=== PATIENT | female | born 1995 | race Two or more races ===

== ENCOUNTER → 2022-10-26 | Outpatient (REF) | payer OTHER | LOC: M SFHCWAGY 17:03 | PROVIDERS: ATTEND Obstetrics & Gynecology | DX: O34.211 Maternal care for low transverse scar from previous cesarean delivery (principal) ==

== ENCOUNTER 2023-06-11 16:11 | Emergency (ER) | payer OTHER ==
[~2023-06-11] VITALS: Ht 162.6 cm; Wt 77.3 kg
[~2023-06-11 16:11] MED LIST: COLA100C5 PO; IBUP80TA PO; PERCOCET PO; PRENTAB9 PO
[2023-06-11] MEDS ORDERED: ASPI-226 (16:24)
[2023-06-11 19:03] VITALS: BP 126/69; TEMP 97.4; O2SAT 98
== END 2023-06-11 19:17 | disposition home or self-care (01) ==
LOC: M ED 16:11
DX: M79.605 Pain in left leg (principal); Z88.2 Allergy status to sulfonamides; Z79.82 Long term (current) use of aspirin

== ENCOUNTER → 2023-12-25 | Outpatient (CLI) | payer OTHER ==
[~2023-12-25] MED LIST changes: +ASPI-226
[2023-12-25 18:30] LABS: HEMOGLOBIN 12.9 g/dl (12.0-15.5); MEAN CORPUSCULAR HGB CONC 32.3 g/dl (32.0-36.5); MEAN CORPUSCULAR VOLUME 86.8 fl (80.0-96.0); PLATELET COUNT, AUTOMATED 288 10^3/uL (150-450); RED BLOOD COUNT 4.61 10^6/uL (4.00-5.40); WHITE BLOOD COUNT 6.3 10^3/uL (4.0-10.0)
== END ==
LOC: M PLALAB 15:28
PROVIDERS: ATTEND Advanced Practice Midwife
DX: Z12.4 Encounter for screening for malignant neoplasm of cervix (principal); N92.0 Excessive and frequent menstruation with regular cycle; Z77.9 Other contact with and (suspected) exposures hazardous to health
CPT/HCPCS: 36415; 84443; 85027; G0123

== ENCOUNTER → 2024-02-06 | Outpatient (CLI) | payer OTHER | LOC: M WHC 10:06 | PROVIDERS: ATTEND Advanced Practice Midwife | DX: N92.0 Excessive and frequent menstruation with regular cycle (principal); N83.292 Other ovarian cyst, left side ==

== ENCOUNTER → 2024-07-16 | Outpatient (REF) | payer OTHER | LOC: M PLALAB 10:29 | PROVIDERS: ATTEND Advanced Practice Midwife | DX: Z34.81 Encounter for supervision of other normal pregnancy, first trimester (principal) ==

== ENCOUNTER → 2024-07-18 | Outpatient (CLI) | payer OTHER ==
[2024-07-18 13:02] LABS: GLUCOSE CHALLENGE TEST 1 HOUR 172 MG/DL (LESS THAN 140)
[2024-07-18 13:06] LABS: HEMATOCRIT 37.6 % (36.0-47.0); HEMOGLOBIN 12.2 g/dl (12.0-15.5); MEAN CORPUSCULAR HEMOGLOBIN 28.2 pg (27.0-33.0); MEAN CORPUSCULAR HGB CONC 32.4 g/dl (32.0-36.5); MEAN CORPUSCULAR VOLUME 86.8 fl (80.0-96.0); PLATELET COUNT, AUTOMATED 252 10^3/uL (150-450); RED BLOOD COUNT 4.33 10^6/uL (4.00-5.40); WHITE BLOOD COUNT 9.2 10^3/uL (4.0-10.0)
[2024-07-18 13:34] LABS: HIV 1&2 SCREEN NEGATIVE (NEGATIVE)
[2024-07-18 13:42] LABS: HEPATITIS C VIRUS ABY INDEX 0.04 INDEX (<0.8)
[2024-07-18 15:06] LABS: Trichomonas vaginalis (AMP) NOT DETECTED (NEGATIVE)
[2024-07-21 14:40] LABS: GC DNA AMPLIFICATION NEGATIVE (NEGATIVE)
== END ==
LOC: M PLALAB 09:56
PROVIDERS: ATTEND Advanced Practice Midwife
DX: Z34.81 Encounter for supervision of other normal pregnancy, first trimester (principal)

== ENCOUNTER → 2024-07-28 | Outpatient (CLI) | payer OTHER | LOC: M LAB 07:17 | PROVIDERS: ATTEND Advanced Practice Midwife | DX: O99.810 Abnormal glucose complicating pregnancy (principal) ==

== ENCOUNTER → 2024-09-11 | Outpatient (CLI) | payer OTHER | LOC: M WHC 10:52 | PROVIDERS: ATTEND Advanced Practice Midwife | DX: O24.319 Unspecified pre-existing diabetes mellitus in pregnancy, unspecified trimester (principal) ==

== ENCOUNTER → 2024-11-12 | Outpatient (CLI) | payer OTHER ==
[2024-11-12 17:09] LABS: PLATELET COUNT, AUTOMATED 220 10^3/uL (150-450)
[2024-11-12 18:10] LABS: HIV 1&2 SCREEN NEGATIVE (NEGATIVE)
[2024-11-12 18:12] LABS: Trichomonas vaginalis (AMP) NOT DETECTED (NEGATIVE)
[2024-11-12 18:18] LABS: HEPATITIS C VIRUS ABY INDEX < 0.02 INDEX (<0.8)
[2024-11-12 18:35] LABS: GC DNA AMPLIFICATION NEGATIVE (NEGATIVE)
== END ==
LOC: M PLALAB 12:15
PROVIDERS: ATTEND Obstetrics & Gynecology
DX: Z34.80 Encounter for supervision of other normal pregnancy, unspecified trimester (principal)

== ENCOUNTER → 2024-11-18 | Outpatient (REF) | payer OTHER | LOC: M SFHCDERM 07:52 | PROVIDERS: ATTEND Physician Assistant | DX: D48.5 Neoplasm of uncertain behavior of skin (principal) ==

== ENCOUNTER → 2024-12-24 | Outpatient (CLI) | payer OTHER | LOC: M WHC 10:45 | PROVIDERS: ATTEND Obstetrics & Gynecology | DX: O24.410 Gestational diabetes mellitus in pregnancy, diet controlled (principal) ==

== ENCOUNTER → 2025-01-07 | Outpatient (CLI) | payer OTHER | LOC: M WHC 11:55 | PROVIDERS: ATTEND Obstetrics & Gynecology | DX: O24.410 Gestational diabetes mellitus in pregnancy, diet controlled (principal); Z3A.35 35 weeks gestation of pregnancy ==

== ENCOUNTER → 2025-01-15 | Outpatient (REF) | payer OTHER ==
[~2025-01-15] MED LIST changes: -ASPI-226; +ASPI-226 PO; +MULTTAB20 PO; +[UNRECOGNIZED DRUG - OTHER]
== END ==
LOC: M SFHCWAGY 12:47
PROVIDERS: ATTEND Specialist
DX: O24.313 Unspecified pre-existing diabetes mellitus in pregnancy, third trimester (principal); Z3A.00 Weeks of gestation of pregnancy not specified

== ENCOUNTER → 2025-01-21 | Outpatient (CLI) | payer OTHER | LOC: M WHC 10:26 | PROVIDERS: ATTEND Obstetrics & Gynecology | DX: O24.410 Gestational diabetes mellitus in pregnancy, diet controlled (principal); Z3A.37 37 weeks gestation of pregnancy ==

== ENCOUNTER 2025-02-04 05:02 | Inpatient (IN) | payer OTHER ==
[2025-02-04] VITALS (87 sets, daily range): BP systolic 86–119; BP diastolic 50–71; O2SAT 88–98
[~2025-02-04] VITALS: Ht 162.6 cm; Wt 84.1 kg
[2025-02-04] MEDS: ceFAZolin SODIUM 2 GM in DEXTROSE 5% (D5W) ADV/MINI-BAG 50 ML IV ONE (05:10)
[2025-02-04] MEDS: BICITRA 30 ML SOLN UDC PO ONE (05:10)
[2025-02-04 05:46] LABS: PLATELET COUNT, AUTOMATED 193 10^3/uL (150-450)
[2025-02-04] MEDS ORDERED: ACET500P3 PO (05:54)
[2025-02-04] MEDS ORDERED: HOME MED LIST COMPLETE! XX SCH (05:55)
[2025-02-04] MEDS: ACETAMINOPHEN 500 MG TAB PO ONE (06:01)
[2025-02-04] MEDS: LR 1,000 ML IV SCH (06:29)
[2025-02-04 06:44] LABS: HIV 1&2 SCREEN NEGATIVE (NEGATIVE)
[2025-02-04 06:52] LABS: HEPATITIS C VIRUS ABY INDEX < 0.02 INDEX (<0.8)
[2025-02-04] MEDS: OSELTAMIVIR PHOSPHATE 75 MG CAP PO SCH (09:04)
[2025-02-04] MEDS: ACETAMINOPHEN 500 MG TAB PO PRN (12:40)
[2025-02-05] VITALS (9 sets, daily range): BP systolic 93–105; BP diastolic 54–62; O2SAT 93–95
[2025-02-06] VITALS (7 sets, daily range): BP systolic 98–123; BP diastolic 58–73; O2SAT 95–96
[2025-02-06] MEDS ORDERED: OSEL75CA2 PO (09:34)
== END 2025-02-06 09:48 | disposition home or self-care (01) | DRG 833 ==
LOC: M LDI 05:02
PROVIDERS: ADMIT Obstetrics & Gynecology; ATTEND Obstetrics & Gynecology
DX: O99.513 Diseases of the respiratory system complicating pregnancy, third trimester (principal); O34.211 Maternal care for low transverse scar from previous cesarean delivery; Z3A.39 39 weeks gestation of pregnancy; Z53.09 Procedure and treatment not carried out because of other contraindication; J10.1 Influenza due to other identified influenza virus with other respiratory manifestations; Z88.2 Allergy status to sulfonamides; Z88.8 Allergy status to other drugs, medicaments and biological substances

== ENCOUNTER 2025-02-10 06:46 | Inpatient (IN) | payer OTHER ==
[~2025-02-10] VITALS: Ht 162.6 cm; Wt 82.2 kg
[2025-02-10] VITALS (10 sets, daily range): BP systolic 95–133; BP diastolic 52–77; TEMP 98; O2SAT 96–100
[~2025-02-10 06:46] MED LIST changes: +ACET500P3 PO; +OSEL75CA2 PO
[2025-02-10] MEDS ORDERED: OXYTOCIN DRIP 30 UNITS in IV 1 EA IV PRN (07:35)
[2025-02-10] MEDS ORDERED: TRANEXAMIC ACID INJection 1,000 MG in NS 100 ML IV PRN (07:35)
[2025-02-10] MEDS ORDERED: OXYTOCIN INJ 10UNITS/ML 1ML VIAL IM PRN (07:35)
[2025-02-10] MEDS ORDERED: METHYLERGONOVINE MALEATE 0.2 MG/ML 1 ML VIAL IM PRN (07:35)
[2025-02-10] MEDS ORDERED: LR 1,000 ML IV SCH (07:35)
[2025-02-10] MEDS ORDERED: CARBOPROST TROMETHAMINE 250 MCG/ML AMP IM PRN (07:35)
[2025-02-10] MEDS ORDERED: HOME MED LIST COMPLETE! XX SCH (07:40)
[2025-02-10 08:13] LABS: PLATELET COUNT, AUTOMATED 209 10^3/uL (150-450)
[2025-02-10] MEDS ORDERED: MORPHINE PRES-FREE INJ 10 MG/10 ML VIAL As Ordered ONE (08:59)
[2025-02-10] MEDS ORDERED: dexAMETHasone 4 MG/ML 1 ML VIAL As Ordered ONE (09:00)
[2025-02-10] MEDS: PRENATAL VITAMINS CHEWABLE TABLET PO SCH (09:00)
[2025-02-10] MEDS ORDERED: ONDANSETRON 4MG/2ML VIAL As Ordered ONE (09:00)
[2025-02-10] MEDS: DOCUSATE SODIUM 100 MG CAPSULE PO SCH (09:00)
[2025-02-10] MEDS ORDERED: KETOROLAC 30 MG/ML 1 ML VIAL As Ordered ONE (09:00)
[2025-02-10] MEDS ORDERED: OXYTOCIN 30UNITS IN 0.9% NaCl 500ML IV BAG IV ONE (09:02)
[2025-02-10] MEDS ORDERED: PHENYLephrine 500MCG 5ML (100MCG/ML) SYRINGE As Ordered ONE (09:02)
[2025-02-10] MEDS ORDERED: ACETAMINOPHEN 1000MG/100ML IV BAG As Ordered ONE (09:02)
[2025-02-10] MEDS: BICITRA 30 ML SOLN UDC PO ONE (09:05)
[2025-02-10] MEDS: LR 1,000 ML IV SCH (09:05)
[2025-02-10] MEDS: ceFAZolin SODIUM 2 GM in DEXTROSE 5% (D5W) ADV/MINI-BAG 50 ML IV ONE (09:05)
[2025-02-10 09:19] LABS: HEPATITIS C VIRUS ABY INDEX < 0.02 INDEX (<0.8)
[2025-02-10 09:49] LABS: HIV 1&2 SCREEN NEGATIVE (NEGATIVE)
[2025-02-10] MEDS ORDERED: ONDANSETRON 4MG/2ML VIAL IV PRN ×2 (10:20→11:10)
[2025-02-10] MEDS ORDERED: MOM 30 ML SUSPENSION UDC PO PRN (10:20)
[2025-02-10] MEDS ORDERED: CALCIUM CARBONATE 500 MG CHEW U/D PO PRN (10:20)
[2025-02-10] MEDS ORDERED: RHOGAM 300MCG (1500IU) INJ IM SCH (10:20)
[2025-02-10] MEDS ORDERED: MORPHINE 4 MG/ML 1 ML VIAL IV PRN (10:20)
[2025-02-10] MEDS ORDERED: PERCOCET 5MG/325MG TAB PO PRN (10:20)
[2025-02-10] MEDS ORDERED: SIMETHICONE 80MG CHEW TAB PO PRN (10:20)
[2025-02-10] MEDS ORDERED: ANUSOL HC CREAM 30 GM TOP PRN (10:20)
[2025-02-10] MEDS ORDERED: COLA100C5 PO (10:33)
[2025-02-10] MEDS ORDERED: PERCOCET PO (10:33)
[2025-02-10] MEDS ORDERED: IBUP80TA PO (10:33)
[2025-02-10] MEDS: OXYTOCIN DRIP 30 UNITS in IV 1 EA IV SCH (10:59)
[2025-02-10] MEDS ORDERED: NALOXONE INJ 0.4 MG/1 ML VIAL IV PRN ×2 (11:10)
[2025-02-10] MEDS ORDERED: HYDROMORPHONE HCL 0.5 MG/0.5 ML SYRINGE IV PRN (11:10)
[2025-02-10] MEDS ORDERED: **NOTE PATIENT COMMENT** MISC XX SCH (11:10)
[2025-02-10] MEDS ORDERED: diphenhydrAMINE 50 MG/ML VIAL IV PRN (11:10)
[2025-02-10] MEDS: SLF 3 ML SYR IV SCH (11:10)
[2025-02-10] MEDS: KETOROLAC 30 MG/ML 1 ML VIAL IV SCH (17:13)
[2025-02-11 01:54] VITALS: BP 91/50; O2SAT 94
[2025-02-11 05:27] VITALS: BP 91/56; O2SAT 97
[2025-02-11 07:27] LABS: PLATELET COUNT, AUTOMATED 169 10^3/uL (150-450)
[2025-02-11] MEDS: PERCOCET 5MG/325MG TAB PO PRN (08:05)
[2025-02-11 10:00] VITALS: BP 102/60; O2SAT 100
[2025-02-11] MEDS: IBUPROFEN 800 MG TAB PO SCH (11:48)
[2025-02-11 14:00] VITALS: BP 97/54; O2SAT 96
[2025-02-11 18:00] VITALS: BP 103/59; O2SAT 97
[2025-02-11] MEDS: ACETAMINOPHEN 500 MG TAB PO PRN (21:21)
[2025-02-11 22:00] VITALS: BP 106/61; O2SAT 95
[2025-02-12 02:09] VITALS: BP 103/61; O2SAT 96
[2025-02-12 05:31] VITALS: BP 112/72; O2SAT 97
[2025-02-12] MEDS: MEASLES,MUMPS,RUBELLA VACCINE INJ (MMR-II) SC.IMMUN ONE (09:00)
[2025-02-12 18:11] VITALS: BP 117/76; O2SAT 96
[2025-02-13 05:42] VITALS: BP 110/68; O2SAT 98
== END 2025-02-13 13:15 | disposition home or self-care (01) | DRG 788 ==
LOC: M LDI 06:46 → M OBS 11:54
PROVIDERS: ADMIT Obstetrics & Gynecology; ATTEND Obstetrics & Gynecology
PROC: 10D00Z1 Extraction of Products of Conception, Low, Open Approach (ICD-10-PCS; principal; 2025-02-10 09:30)
DX: O34.211 Maternal care for low transverse scar from previous cesarean delivery (principal); Z3A.39 39 weeks gestation of pregnancy; Z37.0 Single live birth